=== PATIENT | female | born 1960 | race Two or more races ===

== ENCOUNTER 2018-10-18 23:04 | Emergency (ER) | payer BC ==
[2018-10-18] MEDS ORDERED: Sodium Chloride 0.9% 1,000 ML IV ONE (23:34)
--- NOTE | 2018-10-18 23:40 | EDM.PDOC ---
<kC Vitale - Last Filed: 10/19/18 01:12> ED HPI GENERAL MEDICAL PROBLEM - General Chief Complaint: Abdominal Pain Stated Complaint: FEELING SICK Time Seen by Provider: 10/18/18 23:06 - History of Present Illness INITIAL COMMENTS - FREE TEXT/NARRATIVE: Have seen and examined the patient and agree with above, large pelvic mass discovered on CT, spoken with Dr. Carmen sewell gynecology on-call, he is asked me to add CA 125 to her lab and we'll provide the ER referral following his clinic on Sunday morning - Related Data Allergies Allergy/AdvReac Type Severity Reaction Status Date / Time No Known Allergies Allergy Verified 10/18/18 23:08 Home Meds: Home Meds . [No Known Home Meds] 10/18/18 [History] ED ROS GENERAL - Review of Systems Review Of Systems: See Below ED EXAM, GENERAL - Physical Exam Exam: See Below Course - Vital Signs Last Recorded V/S: Last Vital Signs Temp 36.8 C 10/19/18 01:24 Pulse 92 10/19/18 01:24 Resp 18 10/19/18 01:24 BP 112/77 10/19/18 01:24 Pulse Ox 95 10/19/18 01:24 - Orders/Labs/Meds Labs: Laboratory Tests 10/18/18 10/18/18 10/18/18 Range/Units 23:20 23:28 23:28 WBC 8.33 (4.0-11.0) K/uL RBC 4.20 L (4.30-5.90) M/uL Hgb 10.8 L (12.0-16.0) g/dL Hct 33.3 L (36.0-46.0) % MCV 79.3 L (80.0-98.0) fL MCH 25.7 L (27.0-32.0) pg MCHC 32.4 (31.0-37.0) g/dL RDW Std Deviation 47.6 (28.0-62.0) fl RDW Coeff of Telma 16 H (11.0-15.0) % Plt Count 342 (150-400) K/uL MPV 8.90 (7.40-12.00) fL Neut % (Auto) 65.0 (48.0-80.0) % Lymph % (Auto) 20.0 (16.0-40.0) % [place] % (Auto) 10.2 (0.0-15.0) % Eos % (Auto) 4.6 (0.0-7.0) % Baso % (Auto) 0.2 (0.0-1.5) % Neut # (Auto) 5.4 (1.4-5.7) K/uL Lymph # (Auto) 1.7 (0.6-2.4) K/uL [place] # (Auto) 0.9 H (0.0-0.8) K/uL Eos # (Auto) 0.4 (0.0-0.7) K/uL Baso # (Auto) 0.0 (0.0-0.1) K/uL Nucleated RBC % 0.0 /100WBC Nucleated RBCs # 0 K/uL Sodium 133 L (136-145) mmol/L Potassium 3.4 L (3.5-5.1) mmol/L Chloride 95 L (98-107) mmol/L Carbon Dioxide 31.9 (21.0-32.0) mmol/L BUN 4 L (7.0-18.0) mg/dL Creatinine 0.7 (0.6-1.0) mg/dL Est Cr Clr Drug Dosing 69.84 mL/min Estimated GFR (MDRD) > 60.0 ml/min Glucose 91 (74-106) mg/dL Calcium 8.8 (8.5-10.1) mg/dL Total Bilirubin 0.6 (0.2-1.0) mg/dL AST 17 (15-37) IU/L ALT 14 (14-63) IU/L Alkaline Phosphatase 90 (46-116) U/L Total Protein 8.0 (6.4-8.2) g/dL Albumin 3.4 (3.4-5.0) g/dL Globulin 4.6 H (2.6-4.0) g/dL Albumin/Globulin Ratio 0.7 L (0.9-1.6) Lipase 67 L (73-393) U/L CA 125 Antigen (0.0-35.0) U/ML Urine Color YELLOW Urine Appearance CLEAR Urine pH 7.0 (5.0-8.0) Ur Specific [place] <= 1.005 (1.001-1.035) Urine Protein NEGATIVE (NEGATIVE) mg/dL Urine Glucose (UA) NEGATIVE (NEGATIVE) mg/dL Urine Ketones NEGATIVE (NEGATIVE) mg/dL Urine Occult Blood LARGE H (NEGATIVE) Urine Nitrite NEGATIVE (NEGATIVE) Urine Bilirubin NEGATIVE (NEGATIVE) Urine Urobilinogen 0.2 (<2.0) EU/dL Ur Leukocyte Esterase NEGATIVE (NEGATIVE) Urine RBC 5-10 (0-2/HPF) Urine WBC 0-3 (0-5/HPF) Ur Epithelial Cells OCCASIONAL (NONE-FEW) Urine Bacteria FEW (NEGATIVE) 10/18/18 Range/Units 23:28 WBC (4.0-11.0) K/uL RBC (4.30-5.90) M/uL Hgb (12.0-16.0) g/dL Hct (36.0-46.0) % MCV (80.0-98.0) fL MCH (27.0-32.0) pg MCHC (31.0-37.0) g/dL RDW Std Deviation (28.0-62.0) fl RDW Coeff of Telma (11.0-15.0) % Plt Count (150-400) K/uL MPV (7.40-12.00) fL Neut % (Auto) (48.0-80.0) % Lymph % (Auto) (16.0-40.0) % [place] % (Auto) (0.0-15.0) % Eos % (Auto) (0.0-7.0) % Baso % (Auto) (0.0-1.5) % Neut # (Auto) (1.4-5.7) K/uL Lymph # (Auto) (0.6-2.4) K/uL [place] # (Auto) (0.0-0.8) K/uL Eos # (Auto) (0.0-0.7) K/uL Baso # (Auto) (0.0-0.1) K/uL Nucleated RBC % /100WBC Nucleated RBCs # K/uL Sodium (136-145) mmol/L Potassium (3.5-5.1) mmol/L Chloride (98-107) mmol/L Carbon Dioxide (21.0-32.0) mmol/L BUN (7.0-18.0) mg/dL Creatinine (0.6-1.0) mg/dL Est Cr Clr Drug Dosing mL/min Estimated GFR (MDRD) ml/min Glucose (74-106) mg/dL Calcium (8.5-10.1) mg/dL Total Bilirubin (0.2-1.0) mg/dL AST (15-37) IU/L ALT (14-63) IU/L Alkaline Phosphatase (46-116) U/L Total Protein (6.4-8.2) g/dL Albumin (3.4-5.0) g/dL Globulin (2.6-4.0) g/dL Albumin/Globulin Ratio (0.9-1.6) Lipase (73-393) U/L CA 125 Antigen 168.6 H (0.0-35.0) U/ML Urine Color Urine Appearance Urine pH (5.0-8.0) Ur Specific [place] (1.001-1.035) Urine Protein (NEGATIVE) mg/dL Urine Glucose (UA) (NEGATIVE) mg/dL Urine Ketones (NEGATIVE) mg/dL Urine Occult Blood (NEGATIVE) Urine Nitrite (NEGATIVE) Urine Bilirubin (NEGATIVE) Urine Urobilinogen (<2.0) EU/dL Ur Leukocyte Esterase (NEGATIVE) Urine RBC (0-2/HPF) Urine WBC (0-5/HPF) Ur Epithelial Cells (NONE-FEW) Urine Bacteria (NEGATIVE) Meds: Medications Discontinued Medications Generic Name Dose Route Start Last Admin Trade Name Freq PRN Reason Stop Dose Admin Sodium Chloride 1,000 mls @ 999 mls/hr 10/18/18 23:34 10/18/18 23:40 Normal Saline IV 10/19/18 00:34 999 mls/hr BOLUS ONE Administration Iopamidol 100 ml 10/19/18 00:07 10/19/18 00:14 Isovue-370 (76%) IVPUSH 10/19/18 00:08 100 ml ONETIME ONE Administration Departure - Departure Time of Disposition: 01:13 Disposition: Home, Self-Care 01 Condition: Fair Clinical Impression: Pelvic mass in female - Discharge Information Instructions: Pelvic Mass Referrals: PCP,None [Primary Care Provider] - Forms: ED Department Discharge Additional Instructions: ER referral to ' office for Sunday Return to emergency room if symptoms persist or worsen or if new concerning symptoms develop [facility] [address] [address] The following information is given to patients seen in the emergency department who are being discharged to home. This information is to outline your options for follow-up care. We provide all patients seen in our emergency department with a follow-up referral. The need for follow-up, as well as the timing and circumstances, are variable depending upon the specifics of your emergency department visit. If you don't have a primary care physician on staff, we will provide you with a referral. We always advise you to contact your personal physician following an emergency department visit to inform them of the circumstance of the visit and for follow-up with them and/or the need for any referrals to a consulting specialist. The emergency department will also refer you to a specialist when appropriate. This referral assures that you have the opportunity for follow-up care with a specialist. All of these measure are taken in an effort to provide you with optimal care, which includes your follow-up. Under all circumstances we always encourage you to contact your private physician who remains a resource for coordinating your care. When calling for follow-up care, please make the office aware that this follow-up is from your recent emergency room visit. If for any reason you are refused follow-up, please contact the [facility] emergency department at and asked to speak to the emergency department charge nurse. <Thelma Ramey - Last Filed: 10/20/18 10:16> ED HPI GENERAL MEDICAL PROBLEM - General Source of Information: Reports: Patient History Limitations: Reports: No Limitations - History of Present Illness INITIAL COMMENTS - FREE TEXT/NARRATIVE: HISTORY AND PHYSICAL: History of present illness: Patient is a 58-year-old female who presents to the ED today with concern of lower abdominal pain and distention 5 days. Patient states each day the pain is getting a little bit worse. Patient rates her discomfort a 7 out of 10. Patient states the pain is worse and her lower abdomen that she feels her whole abdomen is distended and bloated. Patient states she's never had symptoms like this before. Patient states she's been treating her pain at home with herbal supplements teas. Patient has a history of breast cancer but has been in remission for 10 years status post double mastectomy. Patient denies any other health history. Patient states she's had a decrease in appetite but has been able to eat small amounts of food throughout the day. Patient denies fever, chills, chest pain, shortness of breath, or cough. Denies headache, neck stiff ness, change in vision, syncope, or near syncope. Denies vomiting, diarrhea, constipation, or dysuria. Has not noted any blood in urine or stool. Review of systems: As per history of present illness and below otherwise all systems reviewed and negative. Past medical history: As per history of present illness and as reviewed below otherwise noncontributory. Surgical history: As per history of present illness and as reviewed below otherwise noncontributory. Social history: See social history for further information Family history: As per history of present illness and as reviewed below otherwise noncontributory. Physical exam: General: Patient is alert, oriented, and in no acute distress. Patient laying comfortably on exam table. HEENT: Atraumatic, normocephalic, pupils equal and reactive bilaterally, negative for conjunctival pallor or scleral icterus, mucous membranes dry, TMs normal bilaterally, throat clear, neck supple, nontender, trachea midline. No drooling or trismus noted. No meningeal signs. No hot potato voice noted. Lungs: Clear to auscultation, breath sounds equal bilaterally, chest nontender. Heart: S1S2, regular rate and rhythm without overt murmur Abdomen: Exam of abdomen is limited due to pain. Moderate-severe pain with palpation of the right lower and left lower quadrants. Soft, distended. Negative for masses or hepatosplenomegaly. Negative for costovertebral tenderness. Pelvis: Stable nontender. Genitourinary: Deferred. Rectal: Deferred. Skin: Intact, warm, dry. No lesions or rashes noted. Extremities: Atraumatic, negative for cords or calf pain. Neurovascular unremarkable. Neuro: Awake, alert, oriented. Cranial nerves II through XII unremarkable. Cerebellum unremarkable. Motor and sensory unremarkable throughout. Exam nonfocal. Notes: Dr. Vitale has assumed care of patient and will follow all remaining diagnostics and disposition. Diagnostics: CBC, CMP, UA, lipase, EKG, abd/pelvic CT Therapeutics: Saline, patient declines pain medication at this time Prescription: Impression: Lower abdominal pain, unspecified Plan: Definitive disposition and diagnosis as appropriate pending reevaluation and review of above. lower abdomen Pain Score (Numeric/FACES): 8 Past Medical History [employer] History: Reports: Musculoskeletal History: Reports: RA - Past Surgical History Female Surgical History: Reports: Mastectomy Social & Family History - Family History Family Medical History: Noncontributory - Tobacco Use Smoking Status *Q: Never Smoker - Recreational Drug Use Recreational Drug Use: No ED ROS GENERAL - Review of Systems Review Of Systems: ROS reveals no pertinent complaints other than HPI. ED EXAM, GENERAL - Physical Exam Exam: See Below (See dictation)
[2018-10-18 23:53] LABS: CHLORIDE,CL 95 mmol/L (98-107); SODIUM,NA 133 mmol/L (136-145)
[2018-10-19] MEDS ORDERED: Iopamidol 755 Mg/ML 100 ML Bottle IVPUSH ONE (00:07)
--- NOTE | 2018-10-19 00:44 | CT ---
INDICATION: Lower abdominal pain TECHNIQUE: CT abdomen and pelvis acquired with 100 cc Isovue 370 IV contrast. COMPARISON: None FINDINGS: Lower chest: Calcified granuloma right lower lobe. Liver: 6 mm hypodensity in the left hepatic lobe measuring 25 Hounsfield units in density. Spleen: Unremarkable. Pancreas: Unremarkable. Gallbladder and bile ducts: Unremarkable. Adrenal glands: Unremarkable. Kidneys: Unremarkable. GI tract: Unremarkable. Appendix is normal. Vascular structures: Unremarkable. Lymph nodes: Unremarkable. Miscellaneous: Unremarkable. No free air or significant free fluid. Pelvic Organs: There is a 9.3 x 12.3 x 11.8 cm heterogeneous mass within the central pelvis. This contains both cystic and solid components. There also some foci of calcification. The mass appears to compress the uterus. There is a small amount of free fluid in the abdomen. There are multiple soft tissue nodules in the mesenteric fat, for example in the left lower quadrant two nodules are seen on image 75 series 201, measuring up to 2.0 cm. There is generalized fat stranding within the omentum. There is some circumferential wall thickening of the mid sigmoid colon on image number 79 which might be reactive. There is no bowel obstruction. Bones: Unremarkable for age. IMPRESSION: Large pelvic mass with peritoneal implants, small amount of free fluid, and fat stranding in the omentum. 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 Recommend pelvic ultrasound and/or pelvic MRI and gynecology consultation. Indeterminate 6 mm hypodense lesion in the liver. Findings were discussed with Dr. Jiménez at 12:40 a.m. on October 19, 2018. Please note that all CT scans at this facility use dose modulation, iterative reconstruction, and/or weight-based dosing when appropriate to reduce radiation dose to as low as reasonably achievable. Dictated by Brielle Mack MD @ Oct 19 2018 12:25AM Signed by Dr. Brielle Mack @ Oct 19 2018 12:43AM
== END 2018-10-19 01:26 | disposition home or self-care (01) ==
LOC: MW.ED 23:04
DX: R19.00 Intra-abdominal and pelvic swelling, mass and lump, unspecified site (principal)
CPT/HCPCS: 36415; 74177; 80053; 81001; 83690; 85025; 86304; 93005; 96360; 99284; J7040; Q9967